=== PATIENT | male | born 1975 | race Caucasian/White ===

== ENCOUNTER 2017-03-27 18:26 | Inpatient (IN) | payer OTHER ==
[~2017-03-27] VITALS: Ht 170.2 cm; Wt 65.8 kg
[2017-03-27 18:38] VITALS: BP 159/112
[2017-03-27] MEDS ORDERED: VENTOLIN HFA 1818 GM NASAL (18:42)
[2017-03-27] MEDS ORDERED: TESSALON PERLE100 MG PO (18:42)
[2017-03-27] MEDS ORDERED: AZITHROMYCIN 2250 MG PO (18:42)
[2017-03-27 19:19] LABS: ABSOLUTE BASOPHILS 0.1 thou/uL (0.0-0.2); ABSOLUTE EOSINOPHILS 0.2 thou/uL (0.0-0.7); ABSOLUTE LYMPHOCYTES 1.9 thou/uL (0.8-5.3); ABSOLUTE MONOCYTES 1.2 thou/uL (0.0-1.2); ABSOLUTE NEUTROPHILS 8.2 thou/uL (1.6-8.1); EOSINOPHILS 1.8 %; HEMATOCRIT 42.6 % (42.0-52.0); HEMOGLOBIN 13.9 gm/dL (14.0-18.0); LYMPHOCYTES 16.5 %; MCH 28.4 pg (26.0-34.0); MCHC 32.7 g/dL (28.0-37.0); MONOCYTES 10.4 %; NUCLEATED RBCS 0 /100WBC; PLATELET COUNT* 262 thou/uL (150-400); POLYS 70.3 %; RDW-CV 15.1 % (10.5-14.5); WBC 11.7 thou/uL (4.0-11.0)
[2017-03-27 19:24] LABS: CALCIUM 8.9 mg/dL (8.5-10.1); POTASSIUM 3.7 mmol/L (3.5-5.1)
[2017-03-27 19:29] LABS: ALBUMIN 2.8 g/dL (3.4-5.0); TOTAL BILIRUBIN 0.3 mg/dL (<0.1-1.0); TOTAL PROTEIN 7.3 g/dL (6.4-8.2)
[2017-03-27 20:07] LABS: INFLUENZA A ANTIGEN None Detected (None Detect); INFLUENZA B ANTIGEN None Detected (None Detect)
[2017-03-27 22:34] VITALS: BP 134/72
[2017-03-27 22:49] VITALS: BP 138/90
[2017-03-28 00:27] VITALS: BP 133/93
[2017-03-28 04:19] LABS: HEMATOCRIT 42.7 % (42.0-52.0); HEMOGLOBIN 14.1 gm/dL (14.0-18.0); MCH 28.6 pg (26.0-34.0); MCHC 33.1 g/dL (28.0-37.0); MCV 86.4 fL (80.0-100.0); NUCLEATED RBCS 0 /100WBC; PLATELET COUNT* 317 thou/uL (150-400); RBC 4.94 mil/uL (4.50-6.00); RDW-CV 14.8 % (10.5-14.5); WBC 7.9 thou/uL (4.0-11.0)
[2017-03-28 04:22] VITALS: BP 137/91
[2017-03-28 04:32] LABS: URINE BILIRUBIN NEGATIVE (Negative); URINE BLOOD NEGATIVE (Negative); URINE CLARITY CLEAR; URINE COLOR YELLOW; URINE GLUCOSE-RANDOM NEGATIVE (Negative); URINE KETONES NEGATIVE (Negative); URINE LEUKOCYTES-REFLEX NEGATIVE (Negative); URINE NITRITE-REFLEX NEGATIVE (Negative); URINE PROTEIN NEGATIVE (Negative); URINE SPECIFIC GRAVITY 1.015 (1.005-1.030); URINE UROBILINOGEN 0.2 E.U./dl (0.2-1.0)
[2017-03-28 04:39] LABS: AMP/METHAMP POSITIVE (Negative); BARBITURATES Negative (Negative); BENZODIAZEPINES Negative (Negative); COCAINE Negative (Negative); METHADONE Negative (Negative); OPIATES POSITIVE (Negative); PCP Negative (Negative); THC Negative (Negative)
[2017-03-28 04:39] LABS: CALCIUM 8.7 mg/dL (8.5-10.1); CREATININE 1.2 mg/dL (0.6-1.3)
[2017-03-28 04:48] LABS: POTASSIUM 5.4 mmol/L (3.5-5.1)
[2017-03-28 06:31] LABS: ABSOLUTE LYMPHOCYTES 0.6 thou/uL (0.8-5.3); ABSOLUTE MONOCYTES 0.6 thou/uL (0.0-1.2); ABSOLUTE NEUTROPHILS 6.8 thou/uL (1.6-8.1)
[2017-03-28 06:32] LABS: PLATELET ESTIMATE ADEQUATE
[2017-03-28 08:49] VITALS: BP 131/84
--- NOTE | 2017-03-28 11:47 | EKG ---
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
[2017-03-28 17:16] VITALS: BP 126/84
[2017-03-28 20:00] VITALS: BP 144/93
[2017-03-29 04:22] LABS: HEMATOCRIT 37.9 % (42.0-52.0); HEMOGLOBIN 12.7 gm/dL (14.0-18.0); MCH 28.6 pg (26.0-34.0); MCHC 33.4 g/dL (28.0-37.0); MCV 85.5 fL (80.0-100.0); MPV 7.6 fl. (7.2-11.1); NUCLEATED RBCS 0 /100WBC; RBC 4.43 mil/uL (4.50-6.00); RDW-CV 14.7 % (10.5-14.5); WBC 15.2 thou/uL (4.0-11.0)
[2017-03-29 04:28] LABS: PLATELET COUNT* 398 thou/uL (150-400)
[2017-03-29 07:24] LABS: ABSOLUTE EOSINOPHILS 0.2 thou/uL (0.0-0.7); ABSOLUTE LYMPHOCYTES 2.4 thou/uL (0.8-5.3); ABSOLUTE MONOCYTES 0.6 thou/uL (0.0-1.2)
[2017-03-29 07:25] LABS: PLATELET ESTIMATE ADEQUATE
[2017-03-29 08:31] VITALS: BP 136/72
[2017-03-29] MEDS ORDERED: LEVAQUIN 750 M750 MG PO (09:38)
[2017-03-29 09:40] VITALS: BP 136/72
== END 2017-03-29 10:30 | disposition home or self-care (01) | DRG 178 ==
LOC: M.ERS 18:26 → M.ORTHSURG 19:34 → M.TBA-ER 19:34 → M.ORTHSURG 22:31
PROVIDERS: Family Medicine; Physician Assistant; ADMIT Internal Medicine
DX: J15.6 Pneumonia due to other Gram-negative bacteria (principal); R04.2 Hemoptysis; F15.10 Other stimulant abuse, uncomplicated; F17.200 Nicotine dependence, unspecified, uncomplicated; Z88.0 Allergy status to penicillin

== ENCOUNTER 2019-03-16 10:43 | Emergency (ER) | payer OTHER ==
[~2019-03-16] VITALS: Ht 170.2 cm; Wt 65.8 kg
[~2019-03-16 10:43] MED LIST: AZITHROMYCIN 2250 MG PO; LEVAQUIN 750 M750 MG PO; TESSALON PERLE100 MG PO; VENTOLIN HFA 1818 GM NASAL
[2019-03-16 11:53] LABS: ABSOLUTE BASOPHILS 0.2 thou/uL (0.0-0.2); ABSOLUTE EOSINOPHILS 0.4 thou/uL (0.0-0.7); ABSOLUTE LYMPHOCYTES 2.4 thou/uL (0.8-5.3); ABSOLUTE MONOCYTES 1.7 thou/uL (0.0-1.2); BASOPHILS 0.9 %; EOSINOPHILS 2.3 %; HEMATOCRIT 43.5 % (42.0-52.0); HEMOGLOBIN 14.6 gm/dL (14.0-18.0); LYMPHOCYTES 13.4 %; MCH 29.1 pg (26.0-34.0); MCHC 33.6 g/dL (28.0-37.0); MCV 86.7 fL (80.0-100.0); MONOCYTES 9.5 %; MPV 7.3 fl. (7.2-11.1); NUCLEATED RBCS 0 /100WBC; PLATELET COUNT* 300 thou/uL (150-400); POLYS 73.9 %; RBC 5.01 mil/uL (4.50-6.00); RDW-CV 15.3 % (10.5-14.5); WBC 17.6 thou/uL (4.0-11.0)
[2019-03-16 13:09] LABS: INFLUENZA A ANTIGEN Negative (Negative); INFLUENZA B ANTIGEN Negative (Negative)
[2019-03-16 13:16] LABS: CALCIUM 8.1 mg/dL (8.5-10.1); POTASSIUM 4.1 mmol/L (3.5-5.1)
[2019-03-16 13:20] LABS: TOTAL BILIRUBIN 0.2 mg/dL (<0.1-1.0); TOTAL PROTEIN 7.3 g/dL (6.4-8.2)
[2019-03-16 16:30] VITALS: BP 158/100
== END 2019-03-16 16:30 | disposition short-term general hospital (02) ==
LOC: M.ERS 10:43
PROVIDERS: Physician Assistant
DX: J36 Peritonsillar abscess (principal); I10 Essential (primary) hypertension; D72.829 Elevated white blood cell count, unspecified; M10.9 Gout, unspecified; F17.210 Nicotine dependence, cigarettes, uncomplicated; Z88.0 Allergy status to penicillin

== ENCOUNTER 2020-06-28 19:39 | Emergency (ER) | payer MEDICAID ==
[~2020-06-28] VITALS: Ht 170.2 cm; Wt 73.5 kg
[~2020-06-28 19:39] MED LIST changes: +COUMADIN 1MG TAB1 M1 PO; +ENOXAPARIN60 MG/0.6 SUBQ
[2020-06-28] MEDS ORDERED: SLOW FE142 MG PO (19:59)
[2020-06-28] MEDS ORDERED: VITAMIN D21250 MCG PO (19:59)
[2020-06-28] MEDS ORDERED: SYNTHROID112 MC1 PO (20:00)
[2020-06-28] MEDS ORDERED: LOPERAMIDE2 MG PO (20:00)
[2020-06-28] MEDS ORDERED: MELATONIN5 MG SUBLING (20:01)
[2020-06-28] MEDS ORDERED: MAGNESIUM400 MG PO (20:01)
[2020-06-28] MEDS ORDERED: MIRTAZAPINE15 M1 PO (20:02)
[2020-06-28] MEDS ORDERED: SODIUM BICARBO650 M3 PO (20:02)
[2020-06-28] MEDS ORDERED: PROTONIX40 M2 PO (20:02)
[2020-06-28] MEDS ORDERED: VITAMIN B-1100 M2 PO (20:03)
[2020-06-28] MEDS ORDERED: CRUTCHES MISCELL (20:54)
[2020-06-28] MEDS ORDERED: NORCO5 PO (20:54)
[2020-06-28 21:11] VITALS: BP 127/66
[2020-07-01] MEDS ORDERED: HYDROCODON-ACE1 EAC8 PO (06:44)
== END 2020-06-28 21:12 | disposition home or self-care (01) ==
LOC: M.ERS 19:39
DX: S93.492A Sprain of other ligament of left ankle, initial encounter (principal); S93.692A Other sprain of left foot, initial encounter; I48.91 Unspecified atrial fibrillation; Z88.0 Allergy status to penicillin; X50.9XXA Other and unspecified overexertion or strenuous movements or postures, initial encounter; Y93.89 Activity, other specified; Y92.89 Other specified places as the place of occurrence of the external cause; Y99.8 Other external cause status